=== PATIENT | female | born 1965 | race Caucasian/White ===

== ENCOUNTER 2017-09-02 18:45 | Emergency (ER) | payer BC, MEDICAID ==
--- NOTE | 2017-09-02 20:26 | EDM.PDOC ---
ED HPI GENERAL MEDICAL PROBLEM - General Chief Complaint: Gastrointestinal Problem Stated Complaint: BLACK STOOLS Time Seen by Provider: 09/02/17 20:25 Source of Information: Reports: Patient, Family History Limitations: Reports: No Limitations - History of Present Illness INITIAL COMMENTS - FREE TEXT/NARRATIVE: pt has had 4 days of black and tarry stools. She has about 5 stools per day. Onset: Other (pt has had 4 days of black tarry stools. She did take paeptobimol on Sat. ) Duration: Hour(s): Location: Reports: Abdomen Associated Symptoms: Reports: Other ( stomach is alittle crampy but she is not having severe pain. ) - Related Data Allergies Allergy/AdvReac Type Severity Reaction Status Date / Time No Known Allergies Allergy Verified 10/15/16 08:01 Home Meds: Home Meds Aspirin 325 mg PO DAILY 05/01/16 [History] Omeprazole 20 mg PO DAILY 05/01/16 [History] Oxybutynin 5 mg PO TID 05/01/16 [History] Sertraline [Zoloft] 100 mg PO DAILY 05/01/16 [History] Acyclovir 400 mg PO BID 06/15/16 [History] amLODIPine Besylate [Amlodipine Besylate] 10 mg PO DAILY 06/15/16 [History] Diclofenac Sodium [IJD: Diclofenac Sodium] 75 mg PO BID 10/11/16 [History] Folic Acid 1 mg PO DAILY 10/11/16 [History] Methotrexate Sodium [Methotrexate] 17.5 mg PO .QW 10/11/16 [History] Propranolol [Inderal] 40 mg PO BID 10/11/16 [History] atorvaSTATin Calcium [Atorvastatin Calcium] 80 mg PO DAILY 10/11/16 [History] Past Medical History HEENT History: Reports: Impaired Vision Cardiovascular History: Reports: High Cholesterol, Hypertension, Other (See Below) Other Cardiovascular History: leaky valve Respiratory History: Reports: SOB Gastrointestinal History: Reports: Colon Polyp, Diverticulosis, GERD, Hemorrhoids Genitourinary History: Reports: Urinary Incontinence RN MATERNITY History: Reports: Musculoskeletal History: Reports: Arthritis, Fracture, Osteoarthritis Other Musculoskeletal History: L shoulder, R knee pain Neurological History: Reports: Migraines, TIA, Vertigo Psychiatric History: Reports: Anxiety, Depression, OCD, Panic Attack Endocrine/Metabolic History: Reports: Obesity/BMI 30+, Vitamin D Deficiency Hematologic History: Reports: Anesthesia Reaction, B12 Deficiency, Folic Acid, Iron Deficiency Dermatologic History: Reports: Psoriasis - Infectious Disease History Infectious Disease History: Reports: Chicken Pox, Measles, Mumps - Past Surgical History Respiratory Surgical History: Reports: None GI Surgical History: Reports: Colonoscopy Female Surgical History: Reports: Section, D&C, Hysterectomy, Tubal Ligation Neurological Surgical History: Reports: None Musculoskeletal Surgical History: Reports: Carpal Tunnel, Shoulder Surgery Dermatological Surgical History: Reports: Other (See Below) Social & Family History - Family History Family Medical History: Noncontributory - Tobacco Use Smoking Status *Q: Never Smoker Second Hand Smoke Exposure: No - Caffeine Use Caffeine Use: Reports: Coffee - Alcohol Use Days Per Week of Alcohol Use: 1 Number of Drinks Per Day: 1 Total Drinks Per Week: 1 - Recreational Drug Use Recreational Drug Use: No ED ROS GENERAL - Review of Systems Review Of Systems: See Below Constitutional: Reports: No Symptoms HEENT: Reports: No Symptoms Respiratory: Reports: No Symptoms Cardiovascular: Reports: No Symptoms Endocrine: Reports: No Symptoms GI/Abdominal: Reports: Black Stool, Diarrhea, Nausea, Other (pt did vomit yesterday. ) : Reports: No Symptoms Musculoskeletal: Reports: No Symptoms Skin: Reports: No Symptoms ED EXAM, GI/ABD - Physical Exam Exam: See Below Text/Narrative:: pt arrived with black tarry stools. She did take peptobismol over the weekend. She did vomit yeasterday but has not vomited otherwise. She states there was no blood in the emesis. She has had episodes in the past of the crampy abdomanal pain. S he has never had the black stools. Exam Limited By: No Limitations General Appearance: Alert, Anxious, Moderate Distress, Other ( she is rating her pain at a 7-8/) Ears: Normal TMs Nose: Normal Inspection Throat/Mouth: Normal Inspection Head: Atraumatic Neck: Normal Inspection Respiratory/Chest: No Respiratory Distress Cardiovascular: Regular Rate, Rhythm GI/Abdominal Exam: Soft, Other ( She did have tenderness on the left side. ) (Female) Exam: Deferred Rectal (Female) Exam: Other ( pt had no masses . She had a small amount of soft black stool present. She had a occult stool done that was neg for blood. ) Back Exam: Normal Inspection Extremities: Normal Inspection Neurological: Alert, Oriented, Normal Cognition Course - Vital Signs Last Recorded V/S: Last Vital Signs Temp 36.3 C 09/02/17 20:54 Pulse 70 09/02/17 20:54 Resp 16 09/02/17 20:54 BP 132/72 09/02/17 20:54 Pulse Ox 95 09/02/17 20:54 Orthostatic Blood Pressure [ 127/73 Standing] Orthostatic Blood Pressure [ 134/74 Sitting] Orthostatic Blood Pressure [ 130/57 Supine] - Orders/Labs/Meds Orders: Active Orders 24 hr Category Date Time Status Abdomen Pelvis w Cont [CT] Stat Exams 09/02/17 21:15 Taken Labs: Laboratory Tests 09/02/17 09/02/17 09/02/17 Range/Units 20:25 20:37 20:37 WBC 11.2 H (4.5-11.0) K/uL RBC 4.30 (3.30-5.50) M/uL Hgb 12.6 D (12.0-15.0) g/dL Hct 39.1 (36.0-48.0) % MCV 91 (80-98) fL MCH 29 (27-31) pg MCHC 32 (32-36) % Plt Count 422 H (150-400) K/uL Neut % (Auto) 69 H (36-66) % Lymph % (Auto) 23 L (24-44) % Rush % (Auto) 9 H (2-6) % Eos % (Auto) 0 L (2-4) % Baso % (Auto) 0 (0-1) % Sodium 139 L (140-148) mmol/L Potassium 4.6 (3.6-5.2) mmol/L Chloride 101 (100-108) mmol/L Carbon Dioxide 31 (21-32) mmol/L Anion Gap 11.6 (5.0-14.0) mmol/L BUN 24 H D (7-18) mg/dL Creatinine 0.8 (0.6-1.0) mg/dL Est Cr Clr Drug Dosing 60.66 mL/min Estimated GFR (MDRD) > 60 (>60) Glucose 111 H (74-106) mg/dL Calcium 9.4 (8.5-10.1) mg/dL Total Bilirubin 0.2 D (0.2-1.0) mg/dL AST 10 L (15-37) U/L ALT 32 (12-78) U/L Alkaline Phosphatase 125 H (46-116) U/L Total Protein 7.3 (6.4-8.2) g/dL Albumin 3.7 (3.4-5.0) g/dL Globulin 3.6 H (2.3-3.5) g/dL Albumin/Globulin Ratio 1.0 L (1.2-2.2) Urine Color Yellow Urine Appearance Clear Urine pH 6.0 (4.5-8.0) Ur Specific [place] 1.015 (1.008-1.030) Urine Protein Negative (NEGATIVE) mg/dL Urine Glucose (UA) Normal (NEGATIVE) mg/dL Urine Ketones Negative (NEGATIVE) mg/dL Urine Occult Blood Negative (NEGATIVE) Urine Nitrite Negative (NEGATIVE) Urine Bilirubin Negative (NEGATIVE) Urine Urobilinogen Normal (NORMAL) mg/dL Ur Leukocyte Esterase Negative (NEGATIVE) Urine RBC 0-5 (0-5) Urine WBC 0-5 (0-5) Ur Epithelial Cells Moderate Amorphous Sediment Few Urine Bacteria Few Urine Mucus Few Meds: Medications Discontinued Medications Generic Name Dose Route Start Last Admin Trade Name Freq PRN Reason Stop Dose Admin Sodium Chloride 1,000 mls @ 500 mls/hr 09/02/17 20:30 09/02/17 20:51 Normal Saline IV 500 mls/hr ASDIRECTED ADENIKE Administration Sodium Chloride 1,000 mls @ 500 mls/hr 09/02/17 20:45 Normal Saline IV ASDIRECTED ADENIKE Sodium Chloride 80 mls @ 3 mls/sec 09/02/17 21:45 09/02/17 21:56 Normal Saline IV 3 mls/sec ASDIRECTED ADENIKE Administration Iopamidol 123 ml 09/02/17 21:45 09/02/17 21:56 Isovue-300 (61%) IV 123 ml . DIRECTED ADENIKE Administration Ketorolac Tromethamine 30 mg 09/02/17 23:19 09/02/17 23:23 Toradol IVPUSH 09/02/17 23:20 30 mg ONETIME ONE Administration Sodium Chloride 10 ml 09/02/17 21:45 09/02/17 21:56 Saline Flush FLUSH 10 ml ASDIRECTED PRN Administration Keep Vein Open - Re-Assessments/Exams Free Text/Narrative Re-Assessment/Exam: 09/02/17 23:24 occult stool was neg. , her lab work otherwise was neg. Her pain was persistent a cat scan was done to rule out diverticulitis. The cat scan was neg. She had diverticlosis pt was given torodol 30mg iv. Departure - Departure Time of Disposition: 23:27 Disposition: Home, Self-Care 01 Condition: Fair Clinical Impression: Abdominal pain - Discharge Information Instructions: Abdominal Pain, Adult, [id number] Referrals: Som Iglesias Sr, MD [Primary Care Provider] - Forms: ED Department Discharge Care Plan Goals: appt with Dr Iglesias, cont same meds. rtc if pain should get worse. - My Orders Last 24 Hours: My Active Orders 09/02/17 21:15 Abdomen Pelvis w Cont [CT] Stat - Assessment/Plan Last 24 Hours: My Active Orders 09/02/17 21:15 Abdomen Pelvis w Cont [CT] Stat
[2017-09-02] MEDS ORDERED: Sodium Chloride 0.9% 1,000 ML IV SCH ×2 (20:30→20:45)
[2017-09-02 20:55] VITALS: BP 132/72
[2017-09-02] MEDS ORDERED: Sodium Chloride 0.9% 10 ML Syringe FLUSH PRN (21:45)
[2017-09-02] MEDS ORDERED: Sodium Chloride 0.9% 80 ML IV SCH (21:45)
[2017-09-02] MEDS ORDERED: Iopamidol 612 MG/ML 150 ML Bottle IV SCH (21:45)
[2017-09-02] MEDS ORDERED: Ketorolac 30 MG/ML SDV IVPUSH ONE (23:19)
== END 2017-09-02 23:41 | disposition home or self-care (01) ==
LOC: JP.ED 18:45
DX: R10.9 Unspecified abdominal pain (principal); I10 Essential (primary) hypertension; E78.00 Pure hypercholesterolemia, unspecified; K21.9 Gastro-esophageal reflux disease without esophagitis; F41.0 Panic disorder [episodic paroxysmal anxiety]; F32.9 Major depressive disorder, single episode, unspecified; Z79.82 Long term (current) use of aspirin; Z79.899 Other long term (current) drug therapy
CPT/HCPCS: 36415; 74177; 80053; 81001; 82272; 85025; 96361; 96374; 99284; J1885; J7030; J7040; J7050

== ENCOUNTER 2017-10-02 06:28 | Day surgery (SDC) | payer BC, MEDICAID ==
[2017-10-02] MEDS ORDERED: cefOXitin 2 GM in Sodium Chloride 0.9% 50 ML IV ONE (07:38)
[2017-10-02] MEDS ORDERED: Propofol 200 MG/20 ML SDV ONE (08:10)
[2017-10-02] MEDS ORDERED: fentaNYL 100 MCG/2 ML SDV ONE (08:10)
[2017-10-02] MEDS ORDERED: Midazolam 1 MG/ML 2 ML SDV ONE (08:11)
[2017-10-02] MEDS ORDERED: cefOXitin 2 GM in Premix Bag 1 BAG IV ONE (08:30)
[2017-10-02] MEDS ORDERED: Sodium Chloride 0.9% 1,000 ML IV SCH (08:30)
[2017-10-02 09:47] VITALS: BP 122/65
--- NOTE | 2017-10-03 09:36 | PROC ---
DATE OF PROCEDURE: 10/02/2017 INDICATION: This is a 52-year-old female, who comes in for a colonoscopy, as she has been having diarrhea and abdominal pain. The risks and benefits were explained to the patient and was taken to the OR. PROCEDURE IN DETAIL: Anesthesia was given by nurse stone derrickman and rigger. During the procedure, we used 2 mg of Versed, 100 mcg of fentanyl, and 130 mg of propofol. The Olympus 180L scope was used. With a gloved finger, the rectum was examined. The tube was placed into the rectum and advanced under direct vision. There was an adequate prep noted throughout the entire colon, except for at 30 cm noted a small amount of stool. We advanced the tube and did get to the cecum. Upon retraction of the tube, noted no lesions or ulcerations. No abnormality throughout the entire colon. No evidence of any mucosal erythema. The tube was removed. The patient tolerated the procedure well. PREOPERATIVE DIAGNOSIS: Diarrhea and abdominal pain. POSTOPERATIVE DIAGNOSIS: Normal colon from cecum to rectum. This procedure does not explain her abdominal pain. Som Iglesias MD /[id number]
== END 2017-10-02 10:11 | disposition home or self-care (01) ==
LOC: JP.SDS 06:28
PROVIDERS: ATTEND Internal Medicine
DX: R10.9 Unspecified abdominal pain (principal); R19.7 Diarrhea, unspecified; K21.9 Gastro-esophageal reflux disease without esophagitis; F41.9 Anxiety disorder, unspecified
CPT/HCPCS: 45378; J0694; J2250; J2704; J3010; J7040; J7030

== ENCOUNTER 2017-10-21 21:10 | Observation (INO) | payer BC, MEDICAID ==
[2017-10-21] MEDS ORDERED: Sodium Chloride 0.9% 10 ML Syringe FLUSH PRN (21:35)
[2017-10-21] MEDS ORDERED: Ondansetron 4 MG/2 ML SDV IVPUSH ONE (21:35)
[2017-10-21] MEDS ORDERED: Ketorolac 30 MG/ML SDV IVPUSH ONE (21:35)
[2017-10-21] MEDS ORDERED: Sodium Chloride 0.9% 1,000 ML IV SCH (21:45)
--- NOTE | 2017-10-21 22:24 | EDM.PDOC ---
ED HPI GENERAL MEDICAL PROBLEM - General Chief Complaint: General Stated Complaint: NAUSEA Time Seen by Provider: 10/21/17 21:26 Source of Information: Reports: Patient, Family (Daughter), Old Records, RN Notes Reviewed History Limitations: Reports: Other (Lack of insight) - History of Present Illness INITIAL COMMENTS - FREE TEXT/NARRATIVE: Brought in by her daughter, chief complaint Headache, confusion History of present illness History 52-year-old female with onset of headache at 7 PM this evening. Took 2 ibuprofen without relief of headache and then felt that she was developing a "funny feeling" through her body. And realized she wasn't focusing very well, realized she wasn't making sense talking about catching trains. [place] as if she had trouble moving trouble walking. [place] unwell earlier today, at 9 AM she had been seen by her primary care provider in a follow-up appointment, 2 weeks after colonoscopy, negative for any precancerous changes. Generalized malaise and fatigue during the day, slept most of the day. In the past she's had episodes of stroke like symptoms and has been diagnosed with TIA and with stroke. However evaluation by neurologist at [place] where she used to live including CT scans MRI of the had vascular studies of the head were negative for any signs of stroke. It was felt that she most likely had atypical migraines or conversion reaction. In general her episodes which are infrequent generally fully recover once her headache is treated. No recent illness or infection Headache Pain Score (Numeric/FACES): 10 - Related Data Allergies Allergy/AdvReac Type Severity Reaction Status Date / Time No Known Allergies Allergy Verified 10/21/17 21:33 Home Meds: Home Meds Aspirin 325 mg PO DAILY 05/01/16 [History] Omeprazole 20 mg PO DAILY 05/01/16 [History] Oxybutynin 5 mg PO TID 05/01/16 [History] Sertraline [Zoloft] 100 mg PO DAILY 05/01/16 [History] Acyclovir 400 mg PO BID 06/15/16 [History] amLODIPine Besylate [Amlodipine Besylate] 10 mg PO DAILY 06/15/16 [History] Diclofenac Sodium [IJD: Diclofenac Sodium] 75 mg PO BID 10/11/16 [History] Folic Acid 1 mg PO DAILY 10/11/16 [History] Methotrexate Sodium [Methotrexate] 17.5 mg PO .QW 10/11/16 [History] Propranolol [Inderal] 40 mg PO BID 10/11/16 [History] atorvaSTATin Calcium [Atorvastatin Calcium] 80 mg PO DAILY 10/11/16 [History] Past Medical History HEENT History: Reports: Impaired Vision Cardiovascular History: Reports: Heart Murmur, High Cholesterol, Hypertension, Other (See Below) Other Cardiovascular History: leaky valve Respiratory History: Reports: SOB Gastrointestinal History: Reports: Colon Polyp, Diverticulosis, GERD Genitourinary History: Reports: Urinary Incontinence, Other (See Below) Other Genitourinary History: possible kidney failure - currently doctoring with Dr Muller 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: Musculoskeletal History: Reports: Arthritis, Fracture, Osteoarthritis Other Musculoskeletal History: L shoulder, R knee pain Neurological History: Reports: Migraines, Vertigo, Other (See Below) (Although there was thought that she may have had strokes in the past, negative MRI, vascular studies and workup by neurology is suggestive more of conversion reaction or atypical migraine) Psychiatric History: Reports: Anxiety, Depression, OCD, Panic Attack Endocrine/Metabolic History: Reports: Obesity/BMI 30+, Vitamin D Deficiency Hematologic History: Reports: Anesthesia Reaction, B12 Deficiency, Folic Acid, Iron Deficiency Dermatologic History: Reports: Psoriasis - Infectious Disease History Infectious Disease History: Reports: Chicken Pox, Measles - Past Surgical History Head Surgeries/Procedures: Reports: None HEENT Surgical History: Reports: None Cardiovascular Surgical History: Reports: None Respiratory Surgical History: Reports: None GI Surgical History: Reports: Appendectomy, Colonoscopy, Polypectomy Female Surgical History: Reports: Section, D&C, Hysterectomy, Tubal Ligation Neurological Surgical History: Reports: None Musculoskeletal Surgical History: Reports: Carpal Tunnel, Knee Replacement, Shoulder Surgery Dermatological Surgical History: Reports: Other (See Below) Social & Family History - Family History Family Medical History: Noncontributory - Tobacco Use Smoking Status *Q: Never Smoker Second Hand Smoke Exposure: No - Caffeine Use Caffeine Use: Reports: Coffee - Alcohol Use Days Per Week of Alcohol Use: 1 Number of Drinks Per Day: 1 Total Drinks Per Week: 1 - Recreational Drug Use Recreational Drug Use: No ED ROS GENERAL - Review of Systems Review Of Systems: Unable To Obtain (Patient is showing decreased responsiveness ) ED EXAM, GENERAL - Physical Exam Exam: See Below Exam Limited By: Other (Abnormal behavior) General Appearance: Alert, No Apparent Distress, Lethargic (Seems to be detached and nonfocused), Other (Color normal, no difficulty with speaking or breathing no slurring, blood pressure is actually elevated here but other vital signs normal) Eye Exam: Bilateral Eye: Normal Inspection (No nystagmus, pupils reactive) Ears: Normal External Exam, Hearing Grossly Normal Nose: Normal Inspection, Normal Mucosa Throat/Mouth: Normal Inspection, Normal Oropharynx Head: Atraumatic, Normocephalic, Other. No: Facial Swelling Neck: Normal Inspection, Non-Tender (No facial droop). No: Lymphadenopathy (R) , Lymphadenopathy (L), Thyromegaly Respiratory/Chest: No Respiratory Distress, Lungs Clear, Normal Breath Sounds, No Accessory Muscle Use Cardiovascular: Normal Peripheral Pulses, Regular Rate, Rhythm, No Murmur GI/Abdominal: Normal Bowel Sounds, Soft, Non-Tender Extremities: Normal Inspection, Non-Tender, No Pedal Edema Neurological: Normal Reflexes, Inattentive, Other (Decreased effort but tone is normal) Psychiatric: Flat Affect, Other (Detached) Skin Exam: Warm, Dry, Normal Color, No Rash Course - Vital Signs Last Recorded V/S: Last Vital Signs Temp 36.4 C 10/21/17 21:53 Pulse 71 10/21/17 23:44 Resp 13 10/21/17 23:44 BP 133/68 10/21/17 23:44 Pulse Ox 90 L 10/21/17 23:44 - Orders/Labs/Meds Orders: Active Orders 24 hr Category Date Time Status Peripheral IV Care [RC] . DIRECTED Care 10/21/17 21:35 Active Head wo Cont [CT] Stat Exams 10/21/17 21:35 Taken Sodium Chloride 0.9% [Normal Saline] 1,000 ml Med 10/21/17 21:45 Active IV ASDIRECTED Sodium Chloride 0.9% [Saline Flush] Med 10/21/17 21:35 Active 10 ml FLUSH ASDIRECTED PRN Peripheral IV Insertion Adult [OM.PC] Routine Oth 10/21/17 21:35 Ordered Medication Orders Sodium Chloride (Normal Saline) 1,000 mls @ 250 mls/hr IV ASDIRECTED ADENIKE Last Admin: 10/21/17 22:22 Dose: 250 mls/hr Sodium Chloride (Saline Flush) 10 ml FLUSH ASDIRECTED PRN PRN Reason: Keep Vein Open Last Admin: 10/21/17 22:23 Dose: 10 ml Labs: Laboratory Tests 10/21/17 10/21/17 Range/Units 21:45 21:45 WBC 7.7 (4.5-11.0) K/uL RBC 4.03 (3.30-5.50) M/uL Hgb 11.9 L (12.0-15.0) g/dL Hct 37.3 (36.0-48.0) % MCV 93 (80-98) fL MCH 30 (27-31) pg MCHC 32 (32-36) % Plt Count 337 (150-400) K/uL Sodium 142 (140-148) mmol/L Potassium 3.9 (3.6-5.2) mmol/L Chloride 108 (100-108) mmol/L Carbon Dioxide 26 (21-32) mmol/L Anion Gap 8.4 (5.0-14.0) mmol/L BUN 16 (7-18) mg/dL Creatinine 0.5 L (0.6-1.0) mg/dL Est Cr Clr Drug Dosing 97.06 mL/min Estimated GFR (MDRD) > 60 (>60) Glucose 133 H (74-106) mg/dL Calcium 8.5 (8.5-10.1) mg/dL Total Bilirubin 0.2 (0.2-1.0) mg/dL AST 12 L (15-37) U/L ALT 27 (12-78) U/L Alkaline Phosphatase 101 (46-116) U/L Total Protein 6.1 L (6.4-8.2) g/dL Albumin 2.9 L (3.4-5.0) g/dL Globulin 3.2 (2.3-3.5) g/dL Albumin/Globulin Ratio 0.9 L (1.2-2.2) Meds: Medications Generic Name Dose Route Start Last Admin Trade Name Freq PRN Reason Stop Dose Admin Sodium Chloride 1,000 mls @ 250 mls/hr 10/21/17 21:45 10/21/17 22:22 Normal Saline IV 250 mls/hr ASDIRECTED ADENIKE Administration Sodium Chloride 10 ml 10/21/17 21:35 10/21/17 22:23 Saline Flush FLUSH 10 ml ASDIRECTED PRN Administration Keep Vein Open Discontinued Medications Generic Name Dose Route Start Last Admin Trade Name Osvaldo PRN Reason Stop Dose Admin Fentanyl 50 mcg 10/21/17 23:20 10/21/17 23:27 Sublimaze IVPUSH 10/21/17 23:21 50 mcg ONETIME ONE Administration Ketorolac Tromethamine 15 mg 10/21/17 21:35 10/21/17 22:23 Toradol IVPUSH 10/21/17 21:36 15 mg ONETIME ONE Administration Ondansetron HCl 4 mg 10/21/17 21:35 10/21/17 22:23 Zofran IVPUSH 10/21/17 21:36 4 mg ONETIME ONE Administration - Re-Assessments/Exams Free Text/Narrative Re-Assessment/Exam: 10/21/17 22:23 52-year-old female with headache nausea and associated symptoms of lethargy confusion. Despite apparently being unable to follow directions, she was able to transfer from [facility] a stretcher without assistance History of previous similar reactions, review of records reveals extensive workup by neurology, no evidence of stroke on previous evaluation including MRI and vascular studies. Thought to be atypical migraine or possibly conversion reaction. Intravenous saline, Toradol 10 mg and ondansetron 4 mg IV 10/22/17 00:05 Improvement in nausea but still some headache, fentanyl 50 g IV given for headache At this time she is certainly clear and able to speak well her headache and nausea both improved. Still has some residual left-sided left arm weakness. Laboratory results are reassuring and CT scan head negative Over 3 hours, persisting weakness so will admit for observation 10/22/17 00:24 Departure - Departure Time of Disposition: 00:23 Disposition: Refer to Observation Condition: Good Clinical Impression: Atypical migraine, Generalized weakness - Discharge Information Referrals: Som Iglesias Sr, MD [Primary Care Provider] - - My Orders Last 24 Hours: My Active Orders 10/21/17 21:35 Peripheral IV Care [RC] . DIRECTED Head wo Cont [CT] Stat Sodium Chloride 0.9% [Saline Flush] 10 ml FLUSH ASDIRECTED PRN Peripheral IV Insertion Adult [OM.PC] Routine 10/21/17 21:45 Sodium Chloride 0.9% [Normal Saline] 1,000 ml IV ASDIRECTED - Assessment/Plan Last 24 Hours: My Active Orders 10/21/17 21:35 Peripheral IV Care [RC] . DIRECTED Head wo Cont [CT] Stat Sodium Chloride 0.9% [Saline Flush] 10 ml FLUSH ASDIRECTED PRN Peripheral IV Insertion Adult [OM.PC] Routine 10/21/17 21:45 Sodium Chloride 0.9% [Normal Saline] 1,000 ml IV ASDIRECTED
[2017-10-21] MEDS ORDERED: fentaNYL 100 MCG/2 ML SDV IVPUSH ONE (23:20)
[2017-10-22] MEDS ORDERED: Acetaminophen 325 MG Tab PO PRN (00:33)
[2017-10-22] MEDS ORDERED: Aluminum Hydroxide/Magnesium Hydroxide/Simethicone Susp 30 ML Cup PO PRN (00:36)
[2017-10-22] MEDS ORDERED: Acetaminophen 650 MG Supp RECTAL PRN (00:36)
[2017-10-22] MEDS ORDERED: Ibuprofen 400 MG Tab PO PRN (00:38)
[2017-10-22] MEDS ORDERED: Ondansetron 4 MG/2 ML SDV IVPUSH PRN (00:39)
[2017-10-22] MEDS: Sodium Chloride 0.9% 1,000 ML IV SCH ×2 (03:15→11:14)
[2017-10-22] MEDS: Ondansetron 4 MG Tab.DIS PO PRN (06:16)
--- NOTE | 2017-10-22 07:10 | PCM.HP ---
H&P History of Present Illness - General Date of Service: 10/22/17 Admit Problem/Dx: Admission Diagnosis/Problem Admission Diagnosis/Problem Weakness Source of Information: Patient, EMS - History of Present Illness Initial Comments - Free Text/Narative: Theresa is a 52 year old female who was seen in the office yesterday for a follow up after having a colonoscopy 2 weeks before. She had no acute concerns at that time. After she got home she started to have a headache and progresses until she was confused talking about geting on a train. She couldn't walk and was brought to the emergency room. She said her thinking has improved but has a severe headache as she has never had before. At the time of my evaluation she states she can walk but walks with care and has a hard time looking to the left. She is having a dull type headache. Onset of Symptoms: Reports: Other (gradual onset over 1-2 hrs. ) Headache Pain Score (Numeric/FACES): 7 - Related Data Allergies/Adverse Reactions: Allergies Allergy/AdvReac Type Severity Reaction Status Date / Time No Known Allergies Allergy Verified 10/21/17 21:33 Home Medications: Home Meds Aspirin 325 mg PO DAILY 05/01/16 [History] Omeprazole 20 mg PO DAILY 05/01/16 [History] Oxybutynin 5 mg PO TID 05/01/16 [History] Sertraline [Zoloft] 100 mg PO DAILY 05/01/16 [History] Acyclovir 400 mg PO BID 06/15/16 [History] amLODIPine Besylate [Amlodipine Besylate] 10 mg PO DAILY 06/15/16 [History] Diclofenac Sodium [IJD: Diclofenac Sodium] 75 mg PO BID 10/11/16 [History] Folic Acid 1 mg PO DAILY 10/11/16 [History] Methotrexate Sodium [Methotrexate] 17.5 mg PO .QW 10/11/16 [History] Propranolol [Inderal] 40 mg PO BID 10/11/16 [History] atorvaSTATin Calcium [Atorvastatin Calcium] 80 mg PO DAILY 10/11/16 [History] Past Medical History HEENT History: Reports: Impaired Vision Cardiovascular History: Reports: Heart Murmur, High Cholesterol, Hypertension, Other (See Below) Other Cardiovascular History: leaky valve Respiratory History: Reports: SOB Gastrointestinal History: Reports: Colon Polyp, Diverticulosis, GERD Genitourinary History: Reports: Urinary Incontinence, Other (See Below) Other Genitourinary History: possible kidney failure - currently doctoring with Dr Muller 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: Musculoskeletal History: Reports: Arthritis, Fracture, Osteoarthritis Other Musculoskeletal History: L shoulder, R knee pain Neurological History: Reports: Migraines, Vertigo, Other (See Below) Psychiatric History: Reports: Anxiety, Depression, OCD, Panic Attack Endocrine/Metabolic History: Reports: Obesity/BMI 30+, Vitamin D Deficiency Hematologic History: Reports: Anesthesia Reaction, B12 Deficiency, Folic Acid, Iron Deficiency Dermatologic History: Reports: Psoriasis - Infectious Disease History Infectious Disease History: Reports: Chicken Pox, Measles - Past Surgical History Head Surgeries/Procedures: Reports: None HEENT Surgical History: Reports: None Cardiovascular Surgical History: Reports: None Respiratory Surgical History: Reports: None GI Surgical History: Reports: Appendectomy, Colonoscopy, Polypectomy Female Surgical History: Reports: Section, D&C, Hysterectomy, Tubal Ligation Neurological Surgical History: Reports: None Musculoskeletal Surgical History: Reports: Carpal Tunnel, Knee Replacement, Shoulder Surgery Dermatological Surgical History: Reports: Other (See Below) Social & Family History - Family History Family Medical History: Noncontributory - Tobacco Use Smoking Status *Q: Never Smoker Second Hand Smoke Exposure: No - Caffeine Use Caffeine Use: Reports: Coffee - Alcohol Use Days Per Week of Alcohol Use: 1 Number of Drinks Per Day: 1 Total Drinks Per Week: 1 - Recreational Drug Use Recreational Drug Use: No H&P Review of Systems - Review of Systems: Review Of Systems: See Below General: Reports: Weakness, Other (having a significant headache.) HEENT: Reports: Headaches Pulmonary: Reports: No Symptoms Cardiovascular: Reports: No Symptoms Gastrointestinal: Reports: Nausea Genitourinary: Reports: No Symptoms Musculoskeletal: Reports: Other (weakness on the left side of her body.) Skin: Reports: No Symptoms Psychiatric: Reports: No Symptoms Neurological: Reports: Other (At the time of my evaluation she is not confused as she was last night.) Exam - Exam Exam: See Below - Vital Signs Vital Signs: Last Vital Signs Temp 97.5 F 10/21/17 21:53 Pulse 138 H 10/22/17 06:59 Resp 28 H 10/22/17 06:59 BP 115/39 L 10/22/17 06:59 Pulse Ox 95 10/22/17 06:59 Weight: 202 lb 6.4 oz - Exam General: Alert, Mild Distress HEENT: Other (EOM is in tact but having difficulty moving her eyes to the left. Pupils are sluggish with minimal reaction but eaual. ) Neck: Supple, Trachea Midline, 2 Lungs: Clear to Auscultation, Normal Respiratory Effort Cardiovascular: Regular Rate, Regular Rhythm GI/Abdominal Exam: Normal Bowel Sounds, Soft, Non-Tender, No Organomegaly, No Distention, No Abnormal Bruit, No Mass, Pelvis Stable Back Exam: Normal Inspection (The is weakness of the left upper and lower extr. but able to walk but with care.), Full Range of Motion, NT Peripheral Pulses: 1+: Carotid (L), Carotid (R), Radial (L), Radial (R) Skin: Warm Neuro Extensive - Mental Status: Oriented x3, Normal Mood/Affect, Normal Cognition, Memory Intact Neuro Extensive - Motor, Sensory, Reflexes: Other (There is significant weakness in the left side with difficulty moving the left arm arm and leg and past point of the left hand finger to nose. There is weakness of he tongue to check on the left.) DTR: 0: Bicep (L), Patella (L), 2+: Bicep (R), Patella (R) Psychiatric: Alert - Patient Data Result Diagrams: 10/21/17 21:45 10/21/17 21:45 *Q Meaningful Use (ADM) - VTE *Q VTE Criteria *Q: - Stroke *Q Stroke Criteria *Q: - AMI *Q AMI Criteria *Q: Problem List Initiated/Reviewed/Updated: Yes Orders Last 24hrs: Active Orders 24 hr Category Date Time Status Activity as Tolerated [RC] .Routine Care 10/22/17 00:32 Active Vital Signs [RC] PER UNIT ROUTINE Care 10/22/17 00:32 Active Regular Diet [DIET] Diet 10/22/17 Breakfast Active Acetaminophen [Tylenol] Med 10/22/17 00:33 Active 650 mg PO Q4H PRN Acetaminophen [Tylenol] Med 10/22/17 00:36 Active 650 mg RECTAL Q4H PRN Alum Hydrox/Mag Hydrox/Simeth [Mag-Al Plus] Med 10/22/17 00:36 Active 30 ml PO Q4H PRN Ibuprofen [Motrin] Med 10/22/17 00:38 Active 400 mg PO QID PRN Ondansetron [Zofran ODT] Med 10/22/17 00:39 Active 4 mg PO Q8H PRN Ondansetron [Zofran] Med 10/22/17 00:39 Active 4 mg IVPUSH Q8H PRN Sodium Chloride 0.9% [Normal Saline] 1,000 ml Med 10/22/17 00:45 Active IV ASDIRECTED Code Status [Resuscitation Status] Stat Resus Stat 10/22/17 00:31 Ordered Medication Orders Acetaminophen (Tylenol) 650 mg PO Q4H PRN PRN Reason: Fever Last Admin: 10/22/17 03:15 Dose: 650 mg Acetaminophen (Tylenol) 650 mg RECTAL Q4H PRN PRN Reason: Fever Al Hydroxide/Mg Hydroxide (Mag-Al Plus) 30 ml PO Q4H PRN PRN Reason: Dyspepsia Sodium Chloride (Normal Saline) 1,000 mls @ 250 mls/hr IV ASDIRECTED [facility] Last Admin: 10/21/17 22:22 Dose: 250 mls/hr Sodium Chloride (Normal Saline) 1,000 mls @ 100 mls/hr IV ASDIRECTED [facility] Last Admin: 10/22/17 03:15 Dose: 100 mls/hr Ibuprofen (Motrin) 400 mg PO QID PRN PRN Reason: Pain Ondansetron HCl (Zofran) 4 mg IVPUSH Q8H PRN PRN Reason: Nausea/Vomiting Ondansetron HCl (Zofran Odt) 4 mg PO Q8H PRN PRN Reason: Nausea/Vomiting Last Admin: 10/22/17 06:16 Dose: 4 mg Sodium Chloride (Saline Flush) 10 ml FLUSH ASDIRECTED PRN PRN Reason: Keep Vein Open Last Admin: 10/21/17 22:23 Dose: 10 ml Assessment/Plan Comment:: Assessment/plan: #1. CVA vs TIA. Ct upon admission from the ER was negative so will do a MRI today. Will check the carotid arteries and do a echo cardiogram. #2. Headache: Etiology unknown likely due to the neuro problem as above. Will give tramadol.
[2017-10-22] MEDS ORDERED: traMADol 50 MG Tab PO ONE (07:30)
--- NOTE | 2017-10-22 10:46 | US ---
VL Duplex Carotid Comp HISTORY: left sided weakness FINDINGS: No significant atherosclerotic plaque is identified in either carotid arterial system. Peak systolic velocity right ICA measures 88 cm/s. End-diastolic velocity is 36 cm/s. Right IC/CC rat io is 0.96. Peak systolic velocity left ICA measures 97 cm/s. End-diastolic velocity is 39 cm/s. Left IC/CC ratio is 1.0. There is no significant spectral broadening. Antegrade vertebral artery flow is demonstrated bilatera lly. External carotid arteries are patent bilaterally. IMPRESSION: Essentially normal carotid ultrasound bilaterally.
[2017-10-22] MEDS ORDERED: LORazepam 0.5 MG Tab PO STA (10:52)
[2017-10-22] MEDS ORDERED: LORazepam 0.5 MG Tab PO ONE ×2 (12:00→12:15)
[2017-10-22] MEDS ORDERED: Gadoteridol 279.3 MG/ML 20 ML SDV IV PRN (12:21)
--- NOTE | 2017-10-22 13:19 | MR ---
Brain w wo Cont HISTORY: left sided weakness TECHNIQUE: Multiplanar sequences of the brain were performed without and with gadolinium. COMPARISON: CT head, 10/21/2017. FINDINGS: Midline structures appear intact. No restricted diffusion or hemosiderin deposition is seen. No acute hemorrhage or infarct is identified. Signal characteristics of the alba and white matter appear within normal limits throughout the brain. No mass lesion, mass effect, midline shift, or ventricular abnormality is identified. There is no en hancing mass or other abnormal enhancement on the contrasted sequences. No abnormal extra-axial fluid collections are seen. Visualized paranasal sinuses and mastoid air cells are clear. No obvious intra orbital signal abnormality or enhancement is noted. IMPRESSION: MRI brain within normal limits. No hemorrhage, infarct, or other acute intracranial abnormality or ab normal enhancement is identified. There is no mass lesion or mass effect.
--- NOTE | 2017-10-22 13:20 | MR ---
Ang Head wo Cont HISTORY: left sided weakness TECHNIQUE: 3D [id number] MR angiography noncontrasted sequences of the intracranial arteries were obtained centered about the [place]. Source and 3-D multiplanar reconstructions were review ed. FINDINGS: Distal internal carotid arteries are widely patent through the carotid siphon. No abnormality of the distal vertebral arteries or basilar artery can be seen. Visualized arteries about the [place] is and the proximal branches of the anterior, middle, and posterior cerebral artery circulations show no evidence for aneurysm, vascular malformation, vascular cutoff, or extrinsic mass effect. IMPRESSION: MR angiography of the brain within normal limits. No signs of intracranial aneurysm or vascular malfo rmation.
[2017-10-22] MEDS: traMADol 50 MG Tab PO PRN ×2 (14:08→22:34)
[2017-10-22] MEDS ORDERED: diphenhydrAMINE 25 MG Cap PO ONE (15:35)
[2017-10-22] MEDS ORDERED: Prochlorperazine 10 MG Tab PO ONE (15:35)
[2017-10-22] MEDS ORDERED: Ketorolac 10 MG Tab PO ONE (15:35)
[2017-10-22] MEDS ORDERED: Ketorolac 60 MG/2 ML SDV IM ONE (15:48)
[2017-10-23] MEDS: Ondansetron 4 MG Tab.DIS PO PRN (05:48)
[2017-10-23] MEDS: traMADol 50 MG Tab PO PRN (05:48)
[2017-10-23 11:15] VITALS: BP 131/82
--- NOTE | 2017-10-23 12:51 | PCM.PN ---
- General Info Date of Service: 10/23/17 Functional Status: Reports: Pain Controlled - Review of Systems General: Reports: Weakness HEENT: Reports: Visual Changes Pulmonary: Reports: No Symptoms Cardiovascular: Reports: No Symptoms Gastrointestinal: Reports: No Symptoms Genitourinary: Reports: No Symptoms Musculoskeletal: Reports: No Symptoms Skin: Reports: No Symptoms Neurological: Reports: No Symptoms Psychiatric: Reports: No Symptoms - Patient Data Vitals - Most Recent: Last Vital Signs Temp 97.4 F 10/23/17 11:00 Pulse 67 10/23/17 11:00 Resp 14 10/23/17 11:00 BP 131/82 10/23/17 11:00 Pulse Ox 98 10/23/17 11:00 Weight - Most Recent: 202 lb 6.396 oz I&O - Last 24 Hours: Intake & Output 10/22/17 10/23/17 10/23/17 22:59 06:59 14:59 Intake Total 1571 400 Output Total 800 Balance 771 400 Med Orders - Current: Current Medications Acetaminophen (Tylenol) 650 mg PO Q4H PRN PRN Reason: Fever Last Admin: 10/22/17 03:15 Dose: 650 mg Acetaminophen (Tylenol) 650 mg RECTAL Q4H PRN PRN Reason: Fever Al Hydroxide/Mg Hydroxide (Mag-Al Plus) 30 ml PO Q4H PRN PRN Reason: Dyspepsia Ibuprofen (Motrin) 400 mg PO QID PRN PRN Reason: Pain Last Admin: 10/23/17 11:24 Dose: 400 mg Ondansetron HCl (Zofran) 4 mg IVPUSH Q8H PRN PRN Reason: Nausea/Vomiting Ondansetron HCl (Zofran Odt) 4 mg PO Q8H PRN PRN Reason: Nausea/Vomiting Last Admin: 10/23/17 05:48 Dose: 4 mg Sodium Chloride (Saline Flush) 10 ml FLUSH ASDIRECTED PRN PRN Reason: Keep Vein Open Last Admin: 10/21/17 22:23 Dose: 10 ml Tramadol HCl (Ultram) 50 mg PO Q6H PRN PRN Reason: Pain Last Admin: 10/23/17 05:48 Dose: 50 mg Discontinued Medications Diphenhydramine HCl (Benadryl) 50 mg PO ONETIME ONE Stop: 10/22/17 15:36 Last Admin: 10/22/17 16:02 Dose: 50 mg Fentanyl (Sublimaze) 50 mcg IVPUSH ONETIME ONE Stop: 10/21/17 23:21 Last Admin: 10/21/17 23:27 Dose: 50 mcg Gadoteridol (Prohance) 20 ml IV . DIRECTED PRN PRN Reason: RADIOLOGY EXAM Stop: 10/22/17 18:00 Last Admin: 10/22/17 13:06 Dose: 20 ml Sodium Chloride (Normal Saline) 1,000 mls @ 250 mls/hr IV ASDIRECTED [facility] Last Admin: 10/21/17 22:22 Dose: 250 mls/hr Sodium Chloride (Normal Saline) 1,000 mls @ 100 mls/hr IV ASDIRECTED [facility] Last Admin: 10/22/17 11:14 Dose: 100 mls/hr Ketorolac Tromethamine (Toradol) 15 mg IVPUSH ONETIME ONE Stop: 10/21/17 21:36 Last Admin: 10/21/17 22:23 Dose: 15 mg Ketorolac Tromethamine (Toradol) 50 mg PO ONETIME ONE Stop: 10/22/17 15:36 Last Admin: 10/22/17 16:57 Dose: Not Given Ketorolac Tromethamine (Toradol) 60 mg IM ONETIME ONE Stop: 10/22/17 15:49 Last Admin: 10/22/17 16:02 Dose: 60 mg Lorazepam (Ativan) 0.5 mg PO NOW STA Stop: 10/22/17 10:53 Last Admin: 10/22/17 11:13 Dose: 0.5 mg Lorazepam (Ativan) 0.5 mg PO ONETIME ONE Stop: 10/22/17 12:01 Last Admin: 10/22/17 12:09 Dose: 0.5 mg Lorazepam (Ativan) 0.5 mg PO ONETIME ONE Stop: 10/22/17 12:16 Last Admin: 10/22/17 13:26 Dose: Not Given Ondansetron HCl (Zofran) 4 mg IVPUSH ONETIME ONE Stop: 10/21/17 21:36 Last Admin: 10/21/17 22:23 Dose: 4 mg Prochlorperazine Maleate (Compazine) 10 mg PO ONETIME ONE Stop: 10/22/17 15:36 Last Admin: 10/22/17 16:02 Dose: 10 mg Tramadol HCl (Ultram) 50 mg PO ONETIME ONE Stop: 10/22/17 07:31 Last Admin: 10/22/17 07:32 Dose: 50 mg - Exam General: Alert, Oriented HEENT: Pupils Equal, Pupils Reactive, EOMI, Mucous Membr. Moist/[place] Neck: Supple Lungs: Clear to Auscultation, Normal Respiratory Effort Cardiovascular: Regular Rate, Regular Rhythm GI/Abdominal Exam: Normal Bowel Sounds, Soft, Non-Tender, No Organomegaly, No Distention, No Abnormal Bruit, No Mass, Pelvis Stable Back Exam: Normal Inspection, Full Range of Motion Extremities: Normal Inspection, Normal Range of Motion, Non-Tender, No Pedal Edema, Normal Capillary Refill Peripheral Pulses: 1+: Radial (L), Radial (R) Skin: Warm, Dry, Intact Neurological: No New Focal Deficit Psy/Mental Status: Alert, Normal Affect, Normal Mood - Problem List Review Problem List Initiated/Reviewed/Updated: Yes - My Orders Last 24 Hours: My Active Orders 10/22/17 13:49 traMADol [Ultram] 50 mg PO Q6H PRN 10/22/17 20:18 Convert IV to Saline Lock [OM.PC] Routine 10/23/17 08:00 Echo Comp wo Cont [US] Urgent 10/23/17 09:09 PT Evaluation and Treatment [CONS] Routine - Plan Plan:: Assessment/plan: #1. CVA vs TIA. The CT, MRI and carotid artery Doppler flow studies of all been negative. The echocardiogram was done but do not have the report. She still has weakness in her left leg but I feel this may be secondary to the surgery that she's had in the left knee. Physical therapy saw her and says they can work with her as an outpatient this will be started. She still has the trouble with the left eye I told her to see a figure refinisher and repairer and she will set this up as an outpatient. She does have past pointing of the right hand I feel this is secondary to the left eye as when she closes the left eye she does not pass pointing any longer. #2. Headache: Etiology unknown likely due to the neuro problem. She did state that she moved her legs a certain way and her headache started immediately I feel that she needs intensive physical therapy and this will be gone. I did give her tramadol for the headache.I will reevaluate in the office as needed. She will see the figure refinisher and repairer before she returns to the office or I'll see her sooner if there is indeed physically.
--- NOTE | 2017-10-23 12:52 | PCM.DCSUM1 ---
Discharge Summary - Hospital Course Brief History: Theresa is a 52 year old female who was seen in the office the day of admission for a follow up after having a colonoscopy 2 weeks before. She had no acute concerns at that time. After she got home she started to have a headache and progresses until she was confused talking about geting on a train. She couldn't walk and was brought to the emergency room. She said her thinking had improved but has a severe headache as she has never had before. At the time of my evaluation she states she can walk but walks with care and has a hard time looking to the left. She is having a dull type headache. - Discharge Data Discharge Date: 10/23/17 Discharge Disposition: Home, Self-Care 01 Condition: Good - Patient Summary/Data Consults: Consultations 10/23/17 09:09 PT Evaluation and Treatment [CONS] Routine Please Evaluate and Treat. PT Reason for Consult: weakness left leg and head aches This query below is only for informational purposes and is not editable. Admission Diagnosis/Problem: Weakness Hospital Course: initially was felt that she had a cerebrovascular accident as he had significant weakness in her left him pass pointing of her finger to the left. MRI was done as well as a CAT scan had been done when she came into the emergency room both were negative as well as the Doppler flow study of the carotid arteries. She did have a headache and Tramadol was given which gave her some relief. She was seen by physical therapy and she'll continue this as an outpatient. She's also been to see an tinsmith apprentice for evaluation of her vision problem. - Patient Instructions Diet: Heart Healthy Diet Activity: As Tolerated - Discharge Plan Prescriptions/Med Rec: traMADol [Ultram] 50 mg PO Q6H PRN #30 tab PRN Reason: Pain Home Medications: Home Meds Aspirin 325 mg PO DAILY 05/01/16 [History] Omeprazole 20 mg PO DAILY 05/01/16 [History] Oxybutynin 5 mg PO TID 05/01/16 [History] Sertraline [Zoloft] 100 mg PO DAILY 05/01/16 [History] Acyclovir 400 mg PO BID 06/15/16 [History] amLODIPine Besylate [Amlodipine Besylate] 10 mg PO DAILY 06/15/16 [History] Diclofenac Sodium [IJD: Diclofenac Sodium] 75 mg PO BID 10/11/16 [History] Folic Acid 1 mg PO DAILY 10/11/16 [History] Methotrexate Sodium [Methotrexate] 17.5 mg PO .QW 10/11/16 [History] Propranolol [Inderal] 40 mg PO BID 10/11/16 [History] atorvaSTATin Calcium [Atorvastatin Calcium] 80 mg PO DAILY 10/11/16 [History] traMADol [Ultram] 50 mg PO Q6H PRN #30 tab 10/23/17 [Rx] Referrals: Som Iglesias Sr, MD [Primary Care Provider] - - Discharge Summary/Plan Comment DC Time >30 min.: Yes Discharge Summary/Plan Comment: Assessment/plan: #1. CVA vs TIA. The CT, MRI and carotid artery Doppler flow studies of all been negative. The echocardiogram was done but do not have the report. She still has weakness in her left leg but I feel this may be secondary to the surgery that she's had in the left knee. Physical therapy saw her and says they can work with her as an outpatient this will be started. She still has the trouble with the left eye I told her to see a tinsmith apprentice and she will set this up as an outpatient. She does have past pointing of the right hand I feel this is secondary to the left eye as when she closes the left eye she does not pass pointing any longer. #2. Headache: Etiology unknown likely due to the neuro problem. She did state that she moved her legs a certain way and her headache started immediately I feel that she needs intensive physical therapy and this will be gone. I did give her tramadol for the headache.I will reevaluate in the office as needed. She will see the tinsmith apprentice before she returns to the office or I'll see her sooner if there is indeed physically. - Patient Data Vitals - Most Recent: Last Vital Signs Temp 97.4 F 10/23/17 11:00 Pulse 67 10/23/17 11:00 Resp 14 10/23/17 11:00 BP 131/82 10/23/17 11:00 Pulse Ox 98 10/23/17 11:00 Weight - Most Recent: 202 lb 6.396 oz I&O - Last 24 hours: Intake & Output 10/22/17 10/23/17 10/23/17 22:59 06:59 14:59 Intake Total 1571 400 Output Total 800 Balance 771 400 Med Orders - Current: Current Medications Acetaminophen (Tylenol) 650 mg PO Q4H PRN PRN Reason: Fever Last Admin: 10/22/17 03:15 Dose: 650 mg Acetaminophen (Tylenol) 650 mg RECTAL Q4H PRN PRN Reason: Fever Al Hydroxide/Mg Hydroxide (Mag-Al Plus) 30 ml PO Q4H PRN PRN Reason: Dyspepsia Ibuprofen (Motrin) 400 mg PO QID PRN PRN Reason: Pain Last Admin: 10/23/17 11:24 Dose: 400 mg Ondansetron HCl (Zofran) 4 mg IVPUSH Q8H PRN PRN Reason: Nausea/Vomiting Ondansetron HCl (Zofran Odt) 4 mg PO Q8H PRN PRN Reason: Nausea/Vomiting Last Admin: 10/23/17 05:48 Dose: 4 mg Sodium Chloride (Saline Flush) 10 ml FLUSH ASDIRECTED PRN PRN Reason: Keep Vein Open Last Admin: 10/21/17 22:23 Dose: 10 ml Tramadol HCl (Ultram) 50 mg PO Q6H PRN PRN Reason: Pain Last Admin: 10/23/17 05:48 Dose: 50 mg Discontinued Medications Diphenhydramine HCl (Benadryl) 50 mg PO ONETIME ONE Stop: 10/22/17 15:36 Last Admin: 10/22/17 16:02 Dose: 50 mg Fentanyl (Sublimaze) 50 mcg IVPUSH ONETIME ONE Stop: 10/21/17 23:21 Last Admin: 10/21/17 23:27 Dose: 50 mcg Gadoteridol (Prohance) 20 ml IV . DIRECTED PRN PRN Reason: RADIOLOGY EXAM Stop: 10/22/17 18:00 Last Admin: 10/22/17 13:06 Dose: 20 ml Sodium Chloride (Normal Saline) 1,000 mls @ 250 mls/hr IV ASDIRECTED [facility] Last Admin: 10/21/17 22:22 Dose: 250 mls/hr Sodium Chloride (Normal Saline) 1,000 mls @ 100 mls/hr IV ASDIRECTED [facility] Last Admin: 10/22/17 11:14 Dose: 100 mls/hr Ketorolac Tromethamine (Toradol) 15 mg IVPUSH ONETIME ONE Stop: 10/21/17 21:36 Last Admin: 10/21/17 22:23 Dose: 15 mg Ketorolac Tromethamine (Toradol) 50 mg PO ONETIME ONE Stop: 10/22/17 15:36 Last Admin: 10/22/17 16:57 Dose: Not Given Ketorolac Tromethamine (Toradol) 60 mg IM ONETIME ONE Stop: 10/22/17 15:49 Last Admin: 10/22/17 16:02 Dose: 60 mg Lorazepam (Ativan) 0.5 mg PO NOW STA Stop: 10/22/17 10:53 Last Admin: 10/22/17 11:13 Dose: 0.5 mg Lorazepam (Ativan) 0.5 mg PO ONETIME ONE Stop: 10/22/17 12:01 Last Admin: 10/22/17 12:09 Dose: 0.5 mg Lorazepam (Ativan) 0.5 mg PO ONETIME ONE Stop: 10/22/17 12:16 Last Admin: 10/22/17 13:26 Dose: Not Given Ondansetron HCl (Zofran) 4 mg IVPUSH ONETIME ONE Stop: 10/21/17 21:36 Last Admin: 10/21/17 22:23 Dose: 4 mg Prochlorperazine Maleate (Compazine) 10 mg PO ONETIME ONE Stop: 10/22/17 15:36 Last Admin: 10/22/17 16:02 Dose: 10 mg Tramadol HCl (Ultram) 50 mg PO ONETIME ONE Stop: 10/22/17 07:31 Last Admin: 10/22/17 07:32 Dose: 50 mg *Q Meaningful Use (DIS) - VTE *Q VTE Criteria *Q: - Stroke *Q Stroke Criteria *Q: - AMI *Q AMI Criteria *Q:
== END 2017-10-23 14:20 | disposition home or self-care (01) ==
LOC: JP.ED 21:10 → JP.ICU 10-22 00:27 → JP.MS 10-22 19:25
PROVIDERS: ADMIT Internal Medicine; ATTEND Internal Medicine
DX: R51 Headache (principal); I10 Essential (primary) hypertension; E78.00 Pure hypercholesterolemia, unspecified; K21.9 Gastro-esophageal reflux disease without esophagitis; F41.9 Anxiety disorder, unspecified; F32.9 Major depressive disorder, single episode, unspecified; E66.9 Obesity, unspecified; E55.9 Vitamin D deficiency, unspecified; Z68.30 Body mass index [BMI] 30.0-30.9, adult; Z79.82 Long term (current) use of aspirin; Z79.899 Other long term (current) drug therapy
CPT/HCPCS: 36415; 70450; 70544; 70553; 80053; 85027; 93306; 93880; 96361; 96372; 96374; 96375; 97110; 97161; 99285; A9270; A9576; G0378; J1885; J2405; J3010; J7040; J7050; J7030

== ENCOUNTER 2017-11-07 12:07 | Emergency (ER) | payer BC, MEDICAID ==
[2017-11-07 12:18] VITALS: BP 174/96
[2017-11-07] MEDS ORDERED: Silver Nitrate Applicator Each ONE (12:34)
[2017-11-07] MEDS ORDERED: Silver Nitrate Applicator Each TOP ONE (12:43)
[2017-11-07] MEDS ORDERED: Oxymetazoline 0.05% Nasal Spray 15 ML Bottle NAS ONE (12:44)
--- NOTE | 2017-11-07 12:49 | EDM.PDOC ---
ED HPI GENERAL MEDICAL PROBLEM - General Chief Complaint: ENT Problem Stated Complaint: NOSEBLEED Time Seen by Provider: 11/07/17 12:44 Source of Information: Reports: Patient History Limitations: Reports: No Limitations - History of Present Illness INITIAL COMMENTS - FREE TEXT/NARRATIVE: pt has had bleeding from the left nostril off and on for the past 2-3 weeks. Her bp has been up at times. Onset: Today, Other (pt has had bleeding off and on. ) Duration: Hour(s): Location: Reports: Other ( nose bleeding. ) Associated Symptoms: Reports: No Other Symptoms - Related Data Allergies Allergy/AdvReac Type Severity Reaction Status Date / Time No Known Allergies Allergy Verified 11/07/17 12:25 Home Meds: Home Meds Aspirin 325 mg PO DAILY 05/01/16 [History] Omeprazole 20 mg PO DAILY 05/01/16 [History] Oxybutynin 5 mg PO TID 05/01/16 [History] Sertraline [Zoloft] 100 mg PO DAILY 05/01/16 [History] Acyclovir 400 mg PO BID 06/15/16 [History] amLODIPine Besylate [Amlodipine Besylate] 10 mg PO DAILY 06/15/16 [History] Diclofenac Sodium [IJD: Diclofenac Sodium] 75 mg PO BID 10/11/16 [History] Folic Acid 1 mg PO DAILY 10/11/16 [History] Methotrexate Sodium [Methotrexate] 17.5 mg PO .QW 10/11/16 [History] Propranolol [Inderal] 40 mg PO BID 10/11/16 [History] atorvaSTATin Calcium [Atorvastatin Calcium] 80 mg PO DAILY 10/11/16 [History] traMADol [Ultram] 50 mg PO Q6H PRN #30 tab 10/23/17 [Rx] Past Medical History HEENT History: Reports: Impaired Vision Cardiovascular History: Reports: Heart Murmur, High Cholesterol, Hypertension, Other (See Below) Other Cardiovascular History: leaky valve Respiratory History: Reports: SOB Gastrointestinal History: Reports: Colon Polyp, Diverticulosis, GERD Genitourinary History: Reports: Urinary Incontinence, Other (See Below) Other Genitourinary History: possible kidney failure - currently doctoring with Dr Muller [employer] History: Reports: Musculoskeletal History: Reports: Arthritis, Fracture, Osteoarthritis Other Musculoskeletal History: L shoulder, R knee pain Neurological History: Reports: Migraines, Vertigo, Other (See Below) Psychiatric History: Reports: Anxiety, Depression, OCD, Panic Attack Endocrine/Metabolic History: Reports: Obesity/BMI 30+, Vitamin D Deficiency Hematologic History: Reports: Anesthesia Reaction, B12 Deficiency, Folic Acid, Iron Deficiency Dermatologic History: Reports: Psoriasis - Infectious Disease History Infectious Disease History: Reports: Chicken Pox, Measles - Past Surgical History Head Surgeries/Procedures: Reports: None HEENT Surgical History: Reports: None Cardiovascular Surgical History: Reports: None Respiratory Surgical History: Reports: None GI Surgical History: Reports: Appendectomy, Colonoscopy, Polypectomy Female Surgical History: Reports: Section, D&C, Hysterectomy, Tubal Ligation Neurological Surgical History: Reports: None Musculoskeletal Surgical History: Reports: Carpal Tunnel, Knee Replacement, Shoulder Surgery Dermatological Surgical History: Reports: Other (See Below) Social & Family History - Family History Family Medical History: Noncontributory - Tobacco Use Smoking Status *Q: Never Smoker Second Hand Smoke Exposure: No - Caffeine Use Caffeine Use: Reports: Coffee - Alcohol Use Days Per Week of Alcohol Use: 1 Number of Drinks Per Day: 1 Total Drinks Per Week: 1 - Recreational Drug Use Recreational Drug Use: No ED ROS ENT - Review of Systems Review Of Systems: See Below Constitutional: Reports: No Symptoms HEENT: Reports: Other (nose bleed. ) Respiratory: Reports: No Symptoms Cardiovascular: Reports: No Symptoms Endocrine: Reports: No Symptoms GI/Abdominal: Reports: No Symptoms : Reports: No Symptoms Musculoskeletal: Reports: No Symptoms Skin: Reports: No Symptoms Neurological: Reports: No Symptoms ED EXAM, ENT - Physical Exam Exam: See Below Text/Narrative:: pt has a nose bleed that started this am. This has been going on and off and for about 2 weeks. Exam Limited By: No Limitations General Appearance: Alert, Anxious, Mild Distress Ears: Normal TMs Nose: Other (pt has bleeding from the septum from the left nostril) Mouth/Throat: Normal Inspection Head: Atraumatic Neck: Normal Inspection Respiratory/Chest: No Respiratory Distress Cardiovascular: Regular Rate, Rhythm GI/Abdominal: Soft, Non-Tender (Female) Exam: Deferred Rectal (Female) Exam: Deferred Back: Normal Inspection Extremities: Normal Inspection Neurological: Alert, Oriented, Normal Cognition Psychiatric: Normal Affect Course - Vital Signs Last Recorded V/S: Last Vital Signs Temp 36.1 C 11/07/17 12:31 Pulse 98 11/07/17 12:31 Resp 16 11/07/17 12:31 BP 174/96 H 11/07/17 12:31 Pulse Ox 96 11/07/17 12:31 - Orders/Labs/Meds Orders: Active Orders 24 hr Category Date Time Status PTT,PARTIAL THROMBOPLSTIN TIME [COAG] Stat Lab 11/07/17 13:01 Received Labs: Laboratory Tests 11/07/17 Range/Units 13:01 WBC 9.2 (4.5-11.0) K/uL RBC 4.56 (3.30-5.50) M/uL Hgb 13.3 (12.0-15.0) g/dL Hct 41.7 (36.0-48.0) % MCV 91 (80-98) fL MCH 29 (27-31) pg MCHC 32 (32-36) % Plt Count 451 H (150-400) K/uL Neut % (Auto) 63 (36-66) % Lymph % (Auto) 30 (24-44) % [place] % (Auto) 6 (2-6) % Eos % (Auto) 1 L (2-4) % Baso % (Auto) 0 (0-1) % Meds: Medications Discontinued Medications Generic Name Dose Route Start Last Admin Trade Name Osvaldo PRN Reason Stop Dose Admin Oxymetazoline HCl 1 ml 11/07/17 12:44 11/07/17 12:50 Afrin Original 0.05% Nasal [place] MY 11/07/17 12:45 1 inhalation ONETIME ONE Administration Silver Nitrate Confirm 11/07/17 12:34 Silver Nitrate Administered 11/07/17 12:35 Dose 1 each .ROUTE .STK-MED ONE Silver Nitrate 1 each 11/07/17 12:43 11/07/17 12:50 Silver Nitrate TOP 11/07/17 12:44 1 each ONETIME ONE Administration - Re-Assessments/Exams Free Text/Narrative Re-Assessment/Exam: 11/07/17 13:15 bleeding was coming from the septum of the left nostril. This area was cauderized with silver nitrate. The nose was then sprayed with aftrin nasal spray. Her bleeding looks good.Her bp is still in the 170/90 range. Her platlet count is normal. Departure - Departure Time of Disposition: 13:17 Disposition: Home, Self-Care 01 Condition: Fair Clinical Impression: Nasal bleeding - Discharge Information Referrals: Som Iglesias Sr, MD [Primary Care Provider] - Forms: ED Department Discharge Care Plan Goals: cool mist humidifier, afrin nasal spray qid for the next 4 days, appt with Dr Iglesias to recheck bp meds. - My Orders Last 24 Hours: My Active Orders 11/07/17 13:01 PTT,PARTIAL THROMBOPLSTIN TIME [COAG] Stat - Assessment/Plan Last 24 Hours: My Active Orders 11/07/17 13:01 PTT,PARTIAL THROMBOPLSTIN TIME [COAG] Stat
== END 2017-11-07 13:39 | disposition home or self-care (01) ==
LOC: JP.ED 12:07
DX: R04.0 Epistaxis (principal); I10 Essential (primary) hypertension; E78.00 Pure hypercholesterolemia, unspecified; F32.9 Major depressive disorder, single episode, unspecified; Z79.82 Long term (current) use of aspirin; Z79.899 Other long term (current) drug therapy
CPT/HCPCS: 30901; 36415; 85025; 85730; 99284; A9270